=== PATIENT | male | born 1960 | race Caucasian/White ===

== ENCOUNTER 2025-07-21 07:55 | Day surgery (SDC) | payer BC ==
[2025-07-21] MEDS ORDERED: propofoL 500 MG/50 ML 50 ML ONE (08:08)
[2025-07-21] MEDS: Lactated Ringers 1,000 ML IV SCH (08:21)
[2025-07-21] MEDS ORDERED: Lactated Ringers 1,000 ML IV SCH (09:30)
== END 2025-07-21 10:10 | disposition home or self-care (01) ==
LOC: MW.SDS 07:55 → EEVIPCON 08:00 → MW.SDS 10:10
PROVIDERS: ATTEND Surgery
DX: Z12.11 Encounter for screening for malignant neoplasm of colon (principal); K57.30 Diverticulosis of large intestine without perforation or abscess without bleeding; I10 Essential (primary) hypertension; E03.9 Hypothyroidism, unspecified; Z79.899 Other long term (current) drug therapy; Z79.890 Hormone replacement therapy
CPT/HCPCS: 45378; J2003; J2704; J7120; 00812